=== PATIENT | female | born 1975 | race Caucasian/White ===

== ENCOUNTER 2017-05-30 09:21 | Emergency (ER) | payer BC ==
--- NOTE | 2017-05-30 09:46 | Emergency Department Record ---
History of Present Illness - General Chief complaint: complication Stated complaint: CRAMPING Time Seen by Provider: 05/30/17 09:39 Source: Patient Mode of Arrival: Ambulatory Limitations: No limitations Travel/Exposure to [place] Within 21 Days of Symptoms: No - History of Present Illness Initial comments: The patient is here due to a 2-3 day hx of pelvic cramping. She thought she may have been a couple of days late for her menses so she took a home test and it was positive. Due to the patient thinking she never could be she began to "freak out" so she came to the ER. She denies any AP, nausea, vomiting, back pain or vaginal bleeding. She does believe she did have a normal menses a month ago. MD Complaint: Other Onset/Timin -: Days(s) Location: Abdomen Radiation: None Severity scale (1-10): 3 Quality: Cramping Consistency: Constant Improves with: None Worsens with: None Associated symptoms: Denies other symptoms Vaginal bleeding: None Pre- care: None - Related Data : 1 Para: 0 Home Medications Medication Instructions Recorded Confirmed Last Taken Fluoxetine HCl [Prozac] 20 mg PO DAILY 04/18/15 05/30/17 05/30/17 Propranolol HCl 20 mg PO .PRN PRN 04/18/15 05/30/17 05/30/17 Allergies Allergy/AdvReac Type Severity Reaction Status Date / Time Penicillins AdvReac RASH Verified 05/30/17 09:26 Past Medical History - SOCIAL HISTORY Smoking Status: Never smoker Alcohol Use: Occasional Drug Use: None - 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: 0 - RESPIRATORY Hx Respiratory Disorders: Yes Comment:: sarcoidosis - CARDIOVASCULAR Hx Cardio Disorders: Yes Comment:: atrial septal defect - NEURO Hx Neuro Disorders: No - GI Hx GI Disorders: No - Hx Genitourinary Disorders: No - ENDOCRINE Hx Endocrine Disorders: No - MUSCULOSKELETAL Hx Musculoskeletal Disorders: No - PSYCH Hx Psych Problems: No - HEMATOLOGY/ONCOLOGY Hx Hematology/Oncology Disorders: No Family Medical History Any Significant Family History?: Yes Hx Heart Disease: Mother Physical Exam - General General Appearance: Alert, Cooperative, No acute distress - Head Head exam: Atraumatic, Normocephalic, Normal inspection - Eye Eye exam: Normal appearance, PERRL - Neck Neck exam: Normal inspection, Full ROM. negative: Tenderness - Respiratory Respiratory exam: Normal lung sounds bilaterally. negative: Respiratory distress - Cardiovascular Cardiovascular Exam: Regular rate, Normal rhythm, Normal heart sounds - GI/Abdominal GI/Abdominal exam: Soft, Normal bowel sounds. negative: Distended, Guarding, Rebound, Rigid, Tenderness Course Vital Signs 05/30/17 09:29 Temperature 98.2 F Pulse Rate 88 Respiratory 16 Rate Blood Pressure 137/88 Pulse Ox 98 - Reevaluation(s) Reevaluation #1: The patient is doing very well at this time. She denies any AP, bleeding, back pain or worsening cramping. I did explain the lab and US results and did stress the need for F/U in 1-2 weeks. 05/30/17 12:19 Medical Decision Making - Data Complexity MDM Data: Labs Ordered and/or Reviewed, X-Ray Ordered and/or Reviewed - Lab Data Result diagrams: 05/30/17 10:10 05/30/17 10:10 - Radiology Data Radiology results: Report reviewed (US: Single live IUP. Neg free fluid.) Disposition Disposition: Discharge Clinical Impression: Threatened in first trimester Disposition: Home, Self-Care Condition: (1) Good Instructions: (ED) Additional Instructions: Please use pelvic rest precautions and see an OB doctor in 1-2 weeks for recheck and possibly another US. Return to the ER for any problems or new issues. Forms: Patient Portal Access Time of Disposition: 12:21 Quality - Quality Measures Quality Measures: N/A - Blood Pressure Screening View Details: Yes Does Patient Have Any of the Following: No Blood Pressure Classification: Pre-Hypertensive BP Reading Systolic Measurement: 137 Diastolic Measurement: 88 Screening for High Blood Pressure: < Pre-Hypertensive BP, F/U Documented > [ [id number]] Pre-Hypertensive Follow-up Interventions: Referral to alternative/primary care provider.
[2017-05-30 09:51] LABS: URINE APPEARANCE CLEAR; URINE BILIRUBIN NEGATIVE (NEGATIVE); URINE BLOOD NEGATIVE (NEGATIVE); URINE COLOR YELLOW; URINE GLUCOSE (UA) NEGATIVE (NEGATIVE); URINE KETONE NEGATIVE (NEGATIVE); URINE LEUKOCYTE ESTERASE NEGATIVE (NEGATIVE); URINE NITRITE NEGATIVE (NEGATIVE); URINE PROTEIN NEGATIVE (NEGATIVE); URINE UROBILINOGEN 0.2 E.U./dL (0.20 - 1.00)
[2017-05-30 09:52] LABS: HCG,QUALITATIVE URINE POSITIVE (NEGATIVE)
[2017-05-30 10:16] LABS: BASO % 0.3 % (0-6); EOS % 1.2 % (0-6); GRAN % 78.6 % (47-80); HEMOGLOBIN 14.1 gm/dl (11.6-16.0); LYMPH % 13.2 % (16-45); MEAN CELL VOLUME 90.3 fl (81-97); MEAN CORPUSCULAR HEMOGLOBIN 31.8 pg (27-33); MEAN CORPUSCULAR HGB CONC 35.3 g/dl (32-36); MEAN PLATELET VOLUME 9.4 fl (7.4-10.4); MONO % 6.7 % (0-9); PLATELET COUNT 210 K/uL (130-400); RED BLOOD COUNT 4.43 M/uL (3.80-5.40); RED CELL DISTRIBUTION WIDTH 13.3 % (11.5-14.5); WHITE BLOOD COUNT W/O DIFF 7.7 K/uL (4.2-12.2)
[2017-05-30 10:26] LABS: ANION GAP 9.8 (7-16); BLOOD UREA NITROGEN 11 mg/dL (7-17); CARBON DIOXIDE 23.2 mmol/L (22-30); CREATININE 0.7 mg/dL (0.52-1.04); EST GLOMERULAR FILTRATION RATE > 60 ml/min; GLUCOSE,RANDOM 102 mg/dL (70-110)
--- NOTE | 2017-05-31 07:58 | ULTRASOUND REPORT ---
EXAM: FIRST TRIMESTER PELVIC ULTRASOUND HISTORY: PELVIC CRAMPING. . TECHNIQUE: Real-time jensen scale sonographic imaging of the pelvis was performed. Transabdominal images were obtained for global evaluation and transvaginal images were obtained for better evaluation of the adnexa. Comparison: None. FINDINGS: Transabdominal images demonstrate a small solitary intrauterine gestational sac. The amniotic fluid is adequate. The placenta is not seen due to early . The uterus measures 8.7 x 4.0 x 5.1 cm. Normal left ovary measures 4.6 x 3.9 x 2.2 cm. Normal right ovary measures 2.9 x 3.6 x 2.3 cm. Transvaginal images reveal a solitary intrauterine gestational sac containing a yolk sac. No perigestational hemorrhage. The gestational sac measures 12 x 7 x 9 mm. pole present with crown rump length of 2 mm. Technologist reports heart activity, although this difficult to confirm as the heart rate is 87 b.p.m. Anechoic cyst with minimal internal echoes in the right ovary measuring 18 mm likely due to corpus luteal cyst. The left ovary is unremarkable. No free pelvic fluid or adnexal mass. Hypoechoic focus within the wall of the body of the uterus posteriorly measuring 12 mm could reflect small fibroid. IMPRESSION: 1. LIVE SOLITARY INTRAUTERINE WITH ESTIMATED GESTATIONAL AGE OF 5 WEEKS 5 DAYS. TECHNOLOGIST REPORTS HEART ACTIVITY ALTHOUGH THIS IS DIFFICULT TO CONFIRM TRUE HEART RATE RATHER THAN MATERNAL HEART RATE. A HEART RATE OF 87 B.P.M. WOULD BE LOW. CONSIDER A FOLLOW-UP STUDY IN ONE OR TWO WEEKS TO REASSESS THE HEART RATE. 2. NO PERIGESTATIONAL HEMORRHAGE. 3. PALPABLE SMALL CORPUS LUTEAL CYST RIGHT OVARY. JOB NUMBER: [id number] [facility]
== END 2017-05-30 12:39 | disposition home or self-care (01) ==
LOC: ER 09:21
DX: O20.0 Threatened abortion (principal); Z3A.01 Less than 8 weeks gestation of pregnancy
CPT/HCPCS: 76801; 76817; 80048; 81003; 81025; 84702; 85025; 99283; 99284